=== PATIENT | male | born 1995 | race Caucasian/White ===

== ENCOUNTER 2024-01-21 11:32 | Emergency (ER) | payer OTHER ==
[~2024-01-21] VITALS: Ht 175.3 cm; Wt 119.9 kg
[2024-01-21 11:37] VITALS: BP 166/95; PULSE 79; RESP 16; TEMP 98.1; O2SAT 100
[2024-01-21 13:57] VITALS: BP 145/97; PULSE 79; RESP 16; TEMP 98.1; O2SAT 100
== END 2024-01-21 13:57 | disposition home or self-care (01) ==
LOC: MED 11:32
DX: R07.89 Other chest pain (principal); M54.2 Cervicalgia; Z85.3 Personal history of malignant neoplasm of breast; Z79.899 Other long term (current) drug therapy
CPT/HCPCS: 71045; 93005; 99283